=== PATIENT | male | born 1985 | race Caucasian/White ===

== ENCOUNTER 2016-12-15 11:16 | Inpatient (IN) | payer OTHER ==
[~2016-12-15] VITALS: Ht 175.3 cm; Wt 89.0 kg
[2016-12-15 14:08] VITALS: BP 166/107
[2016-12-15 14:15] VITALS: BP 166/107
[2016-12-15] MEDS ORDERED: CELEXA40 MG PO (14:56)
[2016-12-15 15:33] VITALS: BP 152/77
[2016-12-15 19:38] VITALS: BP 140/87
[2016-12-16 07:46] VITALS: BP 161/88
[2016-12-16 15:32] VITALS: BP 167/78
[2016-12-16 19:13] VITALS: BP 122/81
[2016-12-16 19:50] VITALS: BP 122/81
[2016-12-17 07:51] VITALS: BP 119/81
[2016-12-17 15:50] VITALS: BP 135/79
[2016-12-18 01:15] VITALS: BP 130/90
[2016-12-18 07:43] VITALS: BP 118/63
[2016-12-18] MEDS ORDERED: NALTREXONE HCL50 MG PO (10:40)
[2016-12-18] MEDS ORDERED: CITALOPRAM HBR20 MG PO (10:40)
[2016-12-18] MEDS ORDERED: BYSTOLIC5 MG PO (10:40)
== END 2016-12-18 13:48 | disposition home or self-care (01) | DRG 885 ==
LOC: 1WEST 11:16
DX: F33.2 Major depressive disorder, recurrent severe without psychotic features (principal); R45.851 Suicidal ideations; F10.20 Alcohol dependence, uncomplicated; F41.9 Anxiety disorder, unspecified; I10 Essential (primary) hypertension; F17.210 Nicotine dependence, cigarettes, uncomplicated
CPT/HCPCS: 83735